=== PATIENT | male | born 1990 | race African-American/Black ===

== ENCOUNTER 2021-03-06 10:23 | Emergency (ER) | payer OTHER ==
[~2021-03-06] VITALS: Ht 177.8 cm; Wt 78.0 kg
[2021-03-06 11:34] VITALS: BP 158/98; TEMP 99
== END 2021-03-06 11:34 | disposition home or self-care (01) ==
LOC: ED 10:23
DX: S20.211A Contusion of right front wall of thorax, initial encounter (principal); W17.89XA Other fall from one level to another, initial encounter; Y93.89 Activity, other specified; Y92.89 Other specified places as the place of occurrence of the external cause; Y99.8 Other external cause status
CPT/HCPCS: 99282